=== PATIENT | male | born 1970 | race Caucasian/White ===

== ENCOUNTER 2016-08-16 08:07 | Emergency (ER) | payer SELFPAY ==
--- NOTE | 2016-08-16 09:06 | ER Document Report ---
HPI - HPI Patient complains to provider of: upper back/neck pain Onset: Yesterday Onset/Duration: Sudden Quality of pain: Achy Severity: Severe Pain Level: 4 Context: Patient presents to the emergency department with complaints of upper back and neck pain. Patient reports he was wrestling with his 11-year-old son when they fell to the ground and he hurt his upper back. 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 He denies numbness tingling. He denies other symptoms such as fever vomiting diarrhea. He denies weakness. He reports he is taking Tylenol without relief of symptoms. Associated Symptoms: None Exacerbated by: Movement - turning head to the right Relieved by: Denies Similar symptoms previously: No Recently seen / treated by doctor: No - REPRODUCTIVE Reproductive: DENIES: : - DERM Skin Color: Normal Past Medical History - General Information source: Patient - Social History Smoking Status: Current Every Day Smoker Cigarette use (# per day): Yes - vapor Chew tobacco use (# tins/day): No Frequency of alcohol use: None Drug Abuse: None Lives with: Family Family History: CAD Patient has suicidal ideation: No Patient has homicidal ideation: No - Medical History Medical History: Negative Neurological Medical History: Denies: Hx Seizures Renal/ Medical History: Denies: Hx Peritoneal Dialysis Past Surgical History: Reports: Hx Appendectomy - Immunizations Hx Diphtheria, Pertussis, Tetanus Vaccination: No Vertical Provider Document - CONSTITUTIONAL Agree With Documented VS: Yes Exam Limitations: No Limitations General Appearance: WD/WN, Mild Distress - INFECTION CONTROL TRAVEL OUTSIDE OF THE [place] 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 negative: Lymphadenopathy-Left, Lymphadenopathy-Right - RESPIRATORY Respiratory: Breath Sounds Normal, No Respiratory Distress, Chest Non-Tender O2 Sat by Pulse Oximetry: 97 - CARDIOVASCULAR Cardiovascular: Regular Rate - GI/ABDOMEN Gastrointestinal: Abdomen Soft, Abdomen Non-Tender - BACK Back: Normal Inspection - no obvious deformity - MUSCULOSKELETAL/EXTREMETIES Musculoskeletal/Extremeties: MAEW, FROM, Non-Tender - NEURO Level of Consciousness: Awake, Alert, Appropriate Motor/Sensory: No Motor Deficit - DERM Integumentary: Warm, Dry Course - Vital Signs Vital signs: Temp Pulse Resp BP Pulse Ox 98.1 F 86 16 132/91 H 97 08/16/16 08:16 08/16/16 08:16 08/16/16 08:16 08/16/16 08:16 08/16/16 08:16 Discharge - Discharge Clinical Impression: neck and upper back pain, Elevated blood pressure reading Strain of right trapezius muscle Qualifiers: Encounter type: initial encounter Qualified Code(s): S46.811A - Strain of other muscles, fascia and tendons at shoulder and upper arm level, right arm, initial encounter Condition: Stable Disposition: HOME, SELF-CARE Instructions: Family Physicians / Practices, Muscle Relaxers ([facility]), Oral Narcotic Medication ([facility]), Ice Packs ([facility]), Warm Packs ([facility]), Ibuprofen (General ) ([facility]) Additional Instructions: *You have been evaluated for trapezius strain *Take medication as prescribed- Take norco for acute pain, take ibuprofen as prescribed *Rest/Ice packs/ warm packs as directed *Follow up with a primary care provider for recheck within one week *Monitor your blood pressure. Your blood pressure was elevated today. This may be because you were anxious, in pain or because you need medication. It is important to follow up with your primary care provider for full evaluation. *Return to ED for worsening condition, changes, needs Prescriptions: Cyclobenzaprine HCl [Flexeril 10 Mg Tablet] 10 mg PO TID #30 tablet Hydrocodone/Acetaminophen [[place] 5-325 Tablet] 1 each PO QID PRN #10 tablet PRN Reason: Ibuprofen [Motrin 800 mg Tablet] 800 mg PO TID #30 tablet Forms: Elevated Blood Pressure
[2016-08-16 09:21] VITALS: BP 129/88
== END 2016-08-16 09:22 | disposition home or self-care (01) ==
LOC: ER 08:07
DX: S46.811A Strain of other muscles, fascia and tendons at shoulder and upper arm level, right arm, initial encounter (principal); R03.0 Elevated blood-pressure reading, without diagnosis of hypertension; M54.6 Pain in thoracic spine; M54.2 Cervicalgia; F17.210 Nicotine dependence, cigarettes, uncomplicated; X58.XXXA Exposure to other specified factors, initial encounter
CPT/HCPCS: 99283

== ENCOUNTER 2017-03-09 07:16 | Emergency (ER) | payer OTHER ==
[2017-03-09] MEDS ORDERED: OXYCODONE-ACETAMINOPHEN 5-325 MG TABLET PO ONE (07:56)
--- NOTE | 2017-03-09 07:57 | ER Document Report ---
ED Hand/Wrist Injury - General Mode of Arrival: Ambulatory Information source: Patient TRAVEL OUTSIDE OF THE [place] IN LAST 30 DAYS: No <GERI ECKERT - Last Filed: 03/09/17 07:59> <DANNA WAKEFIELD - Last Filed: 03/09/17 09:48> - General Chief Complaint: Finger Injury Stated Complaint: LEFT HAND FINGER INJURY Time Seen by Provider: 03/09/17 07:48 Notes: Patient is a 46-year-old male who presents to the emergency department today with complaints of left third finger pain. Patient states that he was closing the tailgate on his truck, it did not latch shut, and it fell back down and slammed into the tip of his third finger on the left hand. Patient's DIP joint is flexed and patient is unable to fully extend at the DIP joint. Patient has pain and swelling over that area. (GERI ECKERT) - Related Data Allergies/Adverse Reactions: No Known Allergies Allergy (Verified 03/09/17 08:27) Past Medical History - General Information source: Patient - Social History Smoking Status: Current Every Day Smoker - "vape" Cigarette use (# per day): No Frequency of alcohol use: None Drug Abuse: None Lives with: Family Family History: Reviewed & Not Pertinent, CAD Patient has suicidal ideation: No - Medical History Medical History: Negative Past Surgical History: Reports: Hx Appendectomy - Immunizations Hx Diphtheria, Pertussis, Tetanus Vaccination: No <GERI ECKERT - Last Filed: 03/09/17 07:59> Review of Systems - Review of Systems Constitutional: No symptoms reported EENT: No symptoms reported Cardiovascular: No symptoms reported Respiratory: No symptoms reported Gastrointestinal: No symptoms reported Genitourinary: No symptoms reported Male Genitourinary: No symptoms reported Musculoskeletal: See HPI, Joint pain - left third finger pain Skin: No symptoms reported Hematologic/Lymphatic: No symptoms reported Neurological/Psychological: No symptoms reported -: Yes All other systems reviewed and negative <GERI ECKERT - Last Filed: 03/09/17 07:59> Physical Exam <GERI ECKERT - Last Filed: 03/09/17 07:59> <DANNA WAKEFIELD - Last Filed: 03/09/17 09:48> - Vital signs Vitals: Temp Pulse Resp BP Pulse Ox 97.7 F 89 18 140/92 H 99 03/09/17 07:17 03/09/17 07:17 03/09/17 07:17 03/09/17 07:17 03/09/17 07:17 - Notes Notes: Physical Exam: General: Alert, appears well. HEENT: Normocephalic. Atraumatic. PERRLA. Extraocular movements intact. Oropharynx clear. Neck: Supple. Respiratory: No respiratory distress. Abdominal: Normal Inspection. No distension. Extremities: Moves all four extremities. Swelling dorsally to left third finger over the DIP, unable to extend the DIP joint fully. Neurological: Normal cognition. AAOx4. Normal speech. Psychological: Normal affect. Normal Mood. Skin: Warm. Dry. Normal color. (GERI ECKERT) Course <GERI ECKERT - Last Filed: 03/09/17 07:59> - Diagnostic Test Radiology reviewed: Image reviewed, Reports reviewed - No avulsion fracture seen <DANNA WAKEFIELD - Last Filed: 03/09/17 09:48> - Re-evaluation Re-evalutation: 03/09/17 09:48 The splint placing the left third finger DIP joint in hyperextension was put on by the PCT. It fits well and accomplishes the goal of keeping that joint in hyperextension. (DANNA WAKEFIELD) - Vital Signs Vital signs: Temp Pulse Resp BP Pulse Ox 98.1 F 70 18 130/89 H 96 03/09/17 09:23 03/09/17 09:23 03/09/17 09:23 03/09/17 09:23 03/09/17 09:23 Discharge <GERI ECKERT - Last Filed: 03/09/17 07:59> <DANNA WAKEFIELD - Last Filed: 03/09/17 09:48> - Discharge Clinical Impression: Mallet deformity of left middle finger Condition: Stable Disposition: HOME, SELF-CARE Additional Instructions: Mallet Finger Deformity The injury to your finger is called a mallet finger or "baseball finger." It occurs when the tendon which straightens the last knuckle of the finger is ruptured. It may also include a small fracture of the bone at the end of the finger. You'll need to wear a splint designed to keep the ends of the ruptured tendon together. If a large chip of bone has broken off, you may need surgery. Complete healing takes about six to eight weeks. It's VERY important that you keep the finger fully straight until healed. If you allow the finger to bend before complete healing occurs, you may end up with a permanent deformity. Therefore keep the splint in place until directed by a physician to remove it. If you ever MUST remove the splint, hold the finger straight with your other hand until the splint has been replaced. Call the doctor, or return for re-examination, if you develop severe pain under the splint, or if the splint is accidentally bent or damaged. FOLLOW UP WITH DR. NI AT [facility]--CALL FOR AN APPOINTMENT. Referrals: VENESSA NI, [ACTIVE STAFF] - Follow up in 3-5 days Scribe Attestation: 03/09/17 09:03 I personally performed the services described in the documentation, reviewed and edited the documentation which was dictated to the scribe in my presence, and it accurately records my words and actions. (DANNA WAKEFIELD) Scribe Documentation - Scribe Written by Shira:: Shira Gómez, 03/09/2017 0822 acting as scribe for :: Azam <GERI ECKERT - Last Filed: 03/09/17 07:59>
--- NOTE | 2017-03-09 08:58 | RADIOLOGY REPORT (SQ) ---
EXAM DESCRIPTION: FINGER LEFT COMPLETED DATE/TIME: 03/09/2017 8:08 am REASON FOR STUDY: 3rd finger, mallet finger COMPARISON: None. NUMBER OF VIEWS: Three views. TECHNIQUE: AP, lateral, and oblique images acquired of the left 3rd finger LIMITATIONS: None. FINDINGS: MINERALIZATION: Normal. BONES: No acute fracture or dislocation. No worrisome bone lesions. SOFT TISSUES: 3rd finger DIP joint soft tissue swelling. No foreign body. OTHER: No other significant finding. IMPRESSION: No acute fracture left 3rd finger. Soft tissue swelling at the 3rd finger DIP joint reg ion without radiopaque foreign body or soft tissue gas. COMMENT: SITE OF TRAUMA/COMPLAINT MARKED/STAMP COMPLETED: Yes TECHNICAL DOCUMENTATION: JOB ID: [id number] [employer]- All Rights Reserved
[2017-03-09 09:25] VITALS: BP 130/89
== END 2017-03-09 09:25 | disposition home or self-care (01) ==
LOC: ER 07:16
DX: M20.012 Mallet finger of left finger(s) (principal); F17.200 Nicotine dependence, unspecified, uncomplicated
CPT/HCPCS: 99283